=== PATIENT | male | born 1995 | race Caucasian/White ===

== ENCOUNTER 2020-01-23 22:07 | Emergency (ER) | payer SELFPAY ==
[~2020-01-23] VITALS: Ht 172.7 cm; Wt 84.1 kg
[2020-01-23 22:18] VITALS: Ht 172.7 cm; Wt 84.1 kg
[2020-01-23] MEDS ORDERED: TYLENOL W/CODEI1 TAB PO (23:53)
[2020-01-23] MEDS ORDERED: AUGMENTIN 875-11 TAB PO (23:53)
[2020-01-24 00:49] VITALS: BP 138/83
== END 2020-01-24 00:49 | disposition home or self-care (01) ==
LOC: D.ER 22:07
DX: J01.90 Acute sinusitis, unspecified (principal); R51 Headache; R05 Cough; R68.89 Other general symptoms and signs; Z72.0 Tobacco use